=== PATIENT | male | born 1960 | race Caucasian/White ===

== ENCOUNTER 2020-05-30 13:07 | Inpatient (IN) | payer MEDICAID, SELFPAY ==
[2020-05-30 13:08] VITALS: BP 111/65; PULSE 86; RESP 15; TEMP 37.3; O2SAT 98; BMI 40.4
--- NOTE | 2020-05-30 14:18 | EKG12_ITS ---
Test Reason : MENTAL CLEARANCE Blood Pressure : / mmHG Vent. Rate : 081 BPM Atrial Rate : 081 BPM P-R Int : 132 ms QRS Dur : 098 ms QT Int : 394 ms P-R-T Axes : 021 -03 032 degrees QTc Int : 457 ms Normal sinus rhythm Normal ECG Confirmed by OLIVIA SHERMAN ([id number]), medical editor DEVON POOLE ([id number]) on 06/01/2020 8:58:41 AM Referred By: JUVENTINO Confirmed By:OLIVIA SHERMAN
--- NOTE | 2020-05-30 14:29 | NURSING ---
NO OLD EKGS
--- NOTE | 2020-05-30 14:30 | ED.DCSUM_ITS ---
History of Present Illness Chief Complaint: Suicidal Narrative: 10-year-old male presents with concern for upper respiratory infection as well as diarrhea and vomiting. States is been persistent over the past 1 week. States he has been feeling weak and having muscle aches. No documented fevers at home. States that a friend from [place] did visit approximately 14 days ago. Concerned he has coronavirus. While being screened for suicide patient did answer yes to most of the questions stating that he does regularly think about suicide. Has no plan at this time and states that he would not perform the act given there were too many people that depend on him and it would hurt too many of his family members. No previous suicide attempts in the past. No attempts today. Patient denies any drug abuse. Admits to occasional alcohol abuse. Past Medical History - Allergies and Home Meds Allergies/Adverse Reactions: Allergies No Known Allergies Allergy (Verified 05/30/20 13:08) Prior records reviewed: Yes Past Medical History: None Surgical History: - - Multiple upper endoscopy and colonoscopy Lives: Alone Smoking Status: Never smoker Alcohol: Rare Drugs: None - Family History Maternal Family History: Reports: Cancer - renal Paternal Family History: Reports: - - lung dz Review of Systems General: Reports: Fever, Malaise. Denies: Chills, Sweats Eyes: Denies: Visual changes - bilaterally, Diplopia ENT: Denies: Rhinorrhea, Sore throat Cardiovascular: Denies: Chest pain, Palpitations Respiratory: Reports: Cough. Denies: Dyspnea, Dyspnea on exertion Gastrointestinal: Reports: Nausea, Vomiting, Diarrhea. Denies: Abdominal pain, Melena, Hematochezia Genitourinary: Denies: Dysuria, Hematuria, Frequency Musculoskeletal: Denies: Back pain, Extremity Pain Skin: Denies: Rash, Wounds Neurological: Denies: Headache, Weakness, Numbness Physical Exam Vital Signs/Narrative: Vital Signs Temp Pulse Resp BP Pulse Ox 05/30/20 13:08 99.2 F H 86 15 111/65 98 Inital Vital Signs reviewed: Yes General: Well nourished, Well developed, No Acute Distress Head: Normocephalic, Atraumatic Eyes: Perrl, EOMI ENT: Moist mucous membranes, No rhinorrhea Neck: Supple, Nontender Cardiovascular: Regular rate, Regular rhythm, No murmurs Respiratory: No distress, CTA bilaterally, Chest nontender Abdomen: Soft, Nontender, Nondistended, Normal bowel sounds Back: Nontender, Normal Inspection Extremities: Nontender, No edema Skin: Normal color, No rash Neurological: Alert, Oriented x3, Cranial nerves II-XII grossly intact, Normal Strength, Normal Sensation Psychological: Normal affect, Normal Mood Diagnostic/Tx/Re-eval ED Activity Last Name: ANTHONY Status: FINAL First Name: NIRANJAN Priority: 2 Middle: K Condition: Birthdate: 1960 Arrival Date/Time: 05/30/20 13:07 Age: 60 Arrival Mode: FAMILY VEHICLE Sex: M Triaged At: 05/30/20 13:08 Language: Hungarian Time Seen by Provider: 05/30/20 14:00 Stated Complaint: SOB - Rhythm Strip Rhythm Strip: Sinus Rhythm Rate: 81 Ectopy: None - EKG Initial EKG Interpretation: Sinus Rhythm - Normal sinus rhythm at 81 bpm. WV interval 132 ms. QTC of 457 ms. No evidence of ST elevation or depression at this time. - Medical Decision Making Appears well nontoxic. Evidence of pneumonia on chest x-ray. With the patient's diarrhea as well as transaminitis and hyponatremia concern for Legionella. Urine was sent for further evaluation. Patient was given Rocephin and azithromycin. Coronavirus negative. Patient evaluated by social work who feels that he can follow-up as an outpatient for his suicidal thoughts. Patient has no plan at this time. However given he is continuing not to feel well he will be placed on 2 L nasal cannula for hypoxemia and admitted to the hospitalist service. Admitted in stable condition. ED Disposition - Plan for ED Patient: Disposition: Acute Care Hospital [facility]
[2020-05-30] MEDS: Ondansetron 4 MG/2 ML Vial IV (14:44)
[2020-05-30 14:46] VITALS: BP 116/68; PULSE 83; RESP 17; TEMP 37.8; O2SAT 98; O2SAT 99
--- NOTE | 2020-05-30 15:03 | RAD_ITS ---
STUDY: X-RAY CHEST REASON FOR EXAM: Male, 60 years old. Sob, loose stool, recent covid test but doesn''t have results back yet, weak, unable to keep food down TECHNIQUE: Single AP portable view of the chest. COMPARISON: None. FINDINGS: EKG electrodes are seen. Infiltration in the right middle lobe. There is no demonstrated pleural abnormality. There is borderline cardiomegaly. Normal mediastinum and farrah. Normal visualized pulmonary arteries. Normal visualized aortic arch and descending thoracic aorta. There are mild degenerative changes of the visualized thoracic spine. Normal visualized ribs, clavicles, and shoulders. There is no demonstrated abnormality of the visualized soft tissue structures of the upper abdomen. RAD/Chest 1 View (Portable) IMPRESSION: Right middle lobe infiltrate. Electronically Signed: Dru Landers, at 15:22 EDT , Service support ,
[2020-05-30 15:05] LABS: Absolute Lymphocyte Count 1.63 X10^3/uL (0.83-4.51); Absolute Neutrophil Count 7.8 X10^3/uL (2.0-7.7); Basophil# 0.04 X10^3/uL; Basophil% 0.4 % (0-1); Eosinophil# 0.01 X10^3/uL; Eosinophils% 0.1 % (0-5); Hematocrit 41.9 % (40-54); Hemoglobin 14.1 g/dL (13.0-16.5); Lymphocyte # 1.63 X10^3/ul (4.0); Lymphocyte % 15.2 % (19-41); Mean Corp Hgb Conc 33.7 g/dL (32-36); Mean Corpuscular Hgb 30.5 pg (27.0-32.0); Mean Corpuscular Volume 90.7 fL (80-94); Mean Platelet Vol. 10.7 fl (6.2-12.0); Monocyte# 1.07 X10^3/uL; NRBC Flagged by Analyzer 0 % (0-5); Neutrophil # 7.83 X10^3/uL (2.7-7.7); Neutrophil % 73.1 % (47-70); Platelet Count 251 K/mm3 (150-450); RBC Distribution Width SD 43.2 fl (35.1-43.9); Red Blood Count 4.62 M/mm3 (4.6-6.2); White Blood Count 10.7 K/mm3 (4.4-11.0)
[2020-05-30 15:34] LABS: AST(SGOT) 332 U/L (15-37); Alanine Aminotransfer ALT/SGPT 280 U/L (16-61); Albumin, Serum 2.5 g/dL (3.2-5.0); Alkaline Phosphatase 88 U/L (45-117); Anion Gap 8 (5-15); BUN 22 mg/dL (7-18); BUN/Creat Ratio 16.4 RATIO (10-20); Bilirubin, Direct 0.32 mg/dL (0.00-0.30); Calcium,Total 8.5 mg/dL (8.5-10.1); Chloride 92 mmol/L (98-107); Creatinine, Serum 1.34 mg/dL (0.70-1.30); EST Glomerular Filtration Rate 58 mL/min (>60); Est Glom Filt Rate - Afr Amer 70 mL/min (>60); Estimated Creatinine Clearance 61.29 ml/min; Globulin 5.2 g/dL (2.2-4.2); Glucose 94 mg/dL (74-106); Potassium 3.3 mmol/L (3.5-5.1); Protein, Total 7.7 g/dL (6.4-8.2); Sodium Level 129 mmol/L (136-145)
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
--- NOTE | 2020-05-30 15:47 | ED.RN ---
PER MINA DUENAS D/C
[2020-05-30] MEDS: Ceftriaxone 1 GM/50 ML BAG IV (15:54)
[2020-05-30 15:58] VITALS: BP 107/64; PULSE 82; PULSE 83; RESP 19; TEMP 38.3; O2SAT 97
[2020-05-30] MEDS: Acetaminophen 500 MG Tablet 1000 MG PO (16:06)
--- NOTE | 2020-05-30 17:11 | PCM.HP.STD ---
History of Present Illness The patient is a 60 year old M [] Past Medical History Allergies No Known Allergies Allergy (Verified 05/30/20 13:08) Home Medications: Ambulatory Orders Medication Instructions Recorded NK 05/30/20 Surgical History: - - Multiple upper endoscopy and colonoscopy Lives: Alone Smoking Status: Never smoker Alcohol: Rare Drugs: None - Physical Exam Vitals/I&O's: Vital Signs Temp Pulse Resp BP Pulse Ox 101.0 F H 83 19 H 107/64 97 05/30/20 15:58 05/30/20 15:58 05/30/20 15:58 05/30/20 15:58 05/30/20 15:58 Oxygen Delivery Method Room Air Weight: 282 lb 3.067 oz Body Mass Index (BMI) 40.4 Intake and Output for Last 24 Hours 05/28/20 05/29/20 05/30/20 23:59 23:59 23:59 Intake Total 50 / 50 Balance 50 / 50 Laboratory Results 05/30/20 14:35: COVID-19 (ABDON) Negative 05/30/20 14:40: WBC 10.7, RBC 4.62, Hgb 14.1, Hct 41.9, MCV 90.7, MCH 30.5, MCHC 33.7, RDW Std Deviation 43.2, RDW Coeff of Stephen 13.0, Plt Count 251, MPV 10.7, Immature Gran % (Auto) 1.200 H, Neut % (Auto) 73.1 H, Lymph % (Auto) 15.2 L, [place] % (Auto) 10.0, Eos % (Auto) 0.1, Baso % (Auto) 0.4, Absolute Neuts (auto) 7.8 H, Absolute Lymphs (auto) 1.63, Nucleated RBC % 0 05/30/20 14:40: Sodium 129 L, Potassium 3.3 L, Chloride 92 L, Carbon Dioxide 29.0, Anion Gap 8, BUN 22 H, Creatinine 1.34 H, Estim Creat Clear Calc 61.29, Est GFR (MDRD) Af Amer 70, Est GFR (MDRD) Non-Af 58 L, BUN/Creatinine Ratio 16.4, Glucose 94, Calcium 8.5, Total Bilirubin 0.80, Direct Bilirubin 0.32 H, AST 332 H, ALT 280 H, Alkaline Phosphatase 88, Troponin I 0.015, Total Protein 7.7, Albumin 2.5 L, Globulin 5.2 H 05/30/20 14:40: Ethyl Alcohol 4.0 05/30/20 14:40: Urine Amphetamine Pending
--- NOTE | 2020-05-30 17:24 | NURSING ---
MED SURG WHITE PNEUMONIA
--- NOTE | 2020-05-30 17:38 | HP.PCM_ITS ---
Problem List (1) PNA (pneumonia) Status: Acute (2) Sepsis Status: Acute (3) Abnormal LFTs Status: Acute History of Present Illness Date of Admission: 05/30/20 Chief Complaint: SOB The patient is a 60 year old M with pmhx of GI bleed 2/2 colonic polyps, not on any home meds who presented to the ER with c/o SOB and stating he thinks he has covid. He went to a bar with a friend from [place] about 10 days ago. The following friday he started feeling ill. He started with a cough with ocasional sputum production. He then started having severe fatigue, muscle and joint a ches, headaches. He developed nausea and vomiting and severe diarrhea. He states he is going about 20x per day loose stools and has BL LQ abdominal pain. He He had fevers and chills start yesterday. He also has developed a change in his taste and smell starting friday afternoon. He started becoming SOB yesterday. [] Past Medical History Allergies No Known Allergies Allergy (Verified 05/30/20 13:08) Home Medications: Ambulatory Orders Medication Instructions Recorded NK 05/30/20 Surgical History: - - Multiple upper endoscopy and colonoscopy Psychiatric History: No pertinent psych hx Lives: Roommate Smoking Status: Never smoker Tobacco Use: Non-smoker Alcohol: Occasional Drugs: None - *Family History Maternal History Items: Cancer - renal Paternal History Items: - - lung dz Review of Systems Constitutional: Reports: Chills, Fever, Weakness, Fatigue. Denies: Weight Change HEENT: Denies: Head Aches, Sinus Congestion, Sinus Drainage Cardiovascular: Denies: Chest Pain, Edema, Palpitations, Syncope Respiratory: Reports: Cough, Shortness of Breath, Shortness of breath at rest, Shortness of breath upon exertion. Denies: Sputum production Gastrointestinal: Reports: Abdominal Pain, Diarrhea, Nausea, Vomiting Genitourinary: Denies: Dysuria, Frequency, Urgency Musculoskeletal: Reports: Joint Pain, Muscle pain. Denies: Joint Tenderness Skin: Denies: Lesions, Rash, Wounds Neurological: Denies: Numbness, Tingling, Focal weakness Psychiatric: Denies: Anxiety, Depression, Homicidal Ideations, Suicidal Ideations Hematologic/ Lymphatic: Denies: Easy Bruising, Easy Bleeding VTE Information - Inpt Only VTE Present on Admission: No VTE Mechan Device Prophylaxis: None VTE Pharm Prophylaxis ordered?: Yes Patient Problems: Active and Suspected Problems PNA (pneumonia) (Acute) Sepsis (Acute) Abnormal LFTs (Acute) - Physical Exam Vitals/I&O's: Vital Signs Temp Pulse Resp BP Pulse Ox 101.0 F H 83 19 H 107/64 97 05/30/20 15:58 05/30/20 15:58 05/30/20 15:58 05/30/20 15:58 05/30/20 15:58 Oxygen Delivery Method Room Air Weight: 282 lb 3.067 oz Body Mass Index (BMI) 40.4 Intake and Output for Last 24 Hours 05/28/20 05/29/20 05/30/20 23:59 23:59 23:59 Intake Total 50 / 50 Balance 50 / 50 General: Alert, Oriented x3, Cooperative HEENT: Atraumatic, PERRLA, EOMI, Normocephalic Neck: Supple, No JVD, Negative Carotid Bruits Lungs: Clear to auscultation, Normal air movement Cardiovascular: No murmurs, Tachycardic Abdomen: Bowel Sounds Present, Soft, Non Tender Extremities: No edema, Capillary Refill Less than 3 Seconds Skin: No rashes, No breakdown Musculoskeletal: No Tenderness to Palpation of Joints or Extremities Neurological: Cranial nerves II-XII grossly intact Psych/Mental Status: Normal Affect, Appropriate, Alert and oriented to time, place, person, mood and affect Laboratory Results 05/30/20 14:35: COVID-19 (ABDON) Negative 05/30/20 14:40: WBC 10.7, RBC 4.62, Hgb 14.1, Hct 41.9, MCV 90.7, MCH 30.5, MCHC 33.7, RDW Std Deviation 43.2, RDW Coeff of Stephen 13.0, Plt Count 251, MPV 10.7, Immature Gran % (Auto) 1.200 H, Neut % (Auto) 73.1 H, Lymph % (Auto) 15.2 L, [place] % (Auto) 10.0, Eos % (Auto) 0.1, Baso % (Auto) 0.4, Absolute Neuts (auto) 7.8 H, Absolute Lymphs (auto) 1.63, Nucleated RBC % 0 05/30/20 14:40: Sodium 129 L, Potassium 3.3 L, Chloride 92 L, Carbon Dioxide 29.0, Anion Gap 8, BUN 22 H, Creatinine 1.34 H, Estim Creat Clear Calc 61.29, Est GFR (MDRD) Af Amer 70, Est GFR (MDRD) Non-Af 58 L, BUN/Creatinine Ratio 16.4, Glucose 94, Calcium 8.5, Total Bilirubin 0.80, Direct Bilirubin 0.32 H, AST 332 H, ALT 280 H, Alkaline Phosphatase 88, Troponin I 0.015, Total Protein 7.7, Albumin 2.5 L, Globulin 5.2 H 05/30/20 14:40: Ethyl Alcohol 4.0 05/30/20 14:40: Urine Amphetamine Pending Assessment/Plan All Active Problems PNA (pneumonia) (Acute) Sepsis (Acute) Abnormal LFTs (Acute) 1. Acute sepsis 2/2 RML pna - concern for covid 19 as he has classic symptomatology. Initial covid test negative. Will continue precautions regardless. No leukocytosis but left shift present. + Fever tmax 101.0, cough, SOB, CXR with RML infiltrate, rales on exam. EKG sinus tacky. Trop neg. Blood cx pending. -Tx with rocephin and azithromycin, aerosols, IS/PEP therapy, mucinex. -check sputum cx, urine antigens, respiratory panel -obtain D dimer, ferritin, LDH, CRP -associated gastroenteritis - clear liquid diet, IV hydration. 2. Hyponatremia, hypokalemia, elevated BUN/Cr - unclear renal baseline. Hydrate with IV fluids and supplement K+. Check Mag. 3. Abnormal LFTs - possibly 2/2 sepsis. Repeat in AM. Obtain Liver/GB US. 4. Hx Colonic polyps with GI bleed 5. Morbid obesity - quill reamer consult. 6. Suicidal ideations - mentioned on nursing screen, occasional with no plan of action. seen by crisis - safety plan for home. DVT ppx: lovenox This patient was seen by Felipe Gonzalez PA-C under the supervision of Dr. Ann.
[2020-05-30 17:59] VITALS: BP 103/69; PULSE 66; RESP 19; TEMP 36.6; O2SAT 98
--- NOTE | 2020-05-30 18:00 | CM.ED ---
SOCIAL WORK Call to [facility], spoke with Rashmi in Crisis. Updated on referral for Crisis to complete follow up phone call and set patient up with counseling services. Patient is self-pay status and this worker discussed applying for Medicaid. Patient reports may need to look into that. FREDDIE Cordon, [employer]
--- NOTE | 2020-05-30 18:00 | NURSING ---
NEW ROOM CVICU 201
[2020-05-30 18:20] LABS: Lactic Acid 1.9 mmol/L (0.4-1.9)
[2020-05-30 18:26] VITALS: BP 111/76; PULSE 87; RESP 16; O2SAT 96
[2020-05-30 18:27] LABS: D-Dimer Quantitative (DVT/PE) 5.36 FEU/ug/m (0.27-0.49)
--- NOTE | 2020-05-30 19:14 | US_ITS ---
HISTORY: ABN LFTS TECHNIQUE: Anaya scale and color doppler imaging was performed of the pancreas, liver, and gallbladder. COMPARISON: None FINDINGS: # of images incl. paperwork: 124 The liver is enlarged at 18.4 cm. Within the liver there are several lesions. These are hypoechoic with well-defined margins and increased through transmission consistent with benign cysts. One of these measures 3.2 x 2.4 x 3 cm. Another measures 3.6 x 4.8 x 3.8 cm. A third measures 0.9 x 0.8 x 0.8 cm. No gallstones, gallbladder wall thickening or biliary dilatation. Gallbladder wall measures 2 mm. Common bile duct measures 5 mm. No tenderness upon insonation the gallbladder. Visualized pancreas is normal in appearance. Right kidney is normal in size and appearance. Visualized abdominal aorta has normal caliber. IVC is patent. Hepatopedal flow is present within the central portal vein. US/Liver IMPRESSION: Hepatomegaly and hepatic steatosis. 3 benign hepatic cysts.. at 2057 Reported and signed by: Rich Ravi MD Electronically Signed: Rich Ravi MD at 20:56 EDT Tel , Service support ,
--- NOTE | 2020-05-30 19:21 | CT_ITS ---
HISTORY: DYSPNEA/COUGH,FATIGUE,HEADACHE,MUSCLE AND JOINT ACHES,NAUSEA,VOMITING AND DIARRHEA,PT'S COVID TEST WAS NEGATIVE TECHNIQUE: Helically acquired images were obtained of the chest following the intravenous administration of 100 ML of Isovue-370 Iodinated contrast. as per pulmonary angiogram protocol with 2D , but without 3-D MIP reconstructions. A radiation dose optimization technique was used for this scan. COMPARISON: Chest x-ray from May 30, 2020 FINDINGS: # of images incl. paperwork: 1311 Airspace disease is present throughout the right lower lobe with decreased volume. The consolidation is confluent with the right hilum. No effusions. Within the thoracic spinethere is a minimal kyphosis with some degenerative disc disease. A few small node invaginations are present. No lytic or blastic metastasis are perceived Vertebral body height fairly well preserved Facets are well aligned. No rib lesions are perceived. Heart is not enlarged. Thoracic aorta diseased with atherosclerotic calcific plaque. No aneurysms, stenoses, dissections, nor occlusions. Right hilar lymphoid tissue is prominent. There is likely some subcarinal lymphadenopathy. No axillary adenopathy is perceived No pulmonary emboli are perceived, however, the timing of the contrast bolus demonstrates improved opacification of the pulmonary veins in the thoracic aorta than it does the pulmonary arteries, therefore, decreasing the negative predictive value of this study Many hypodense lesions are present within the liver. The largest of these, within the dome of the liver has fairly well-defined margins, measures 4.5 cm in long axis dimensions, and has a central density of -5 Hounsfield units. All of these lesions are suggestive of cysts. A comparison liver ultrasound is available from one hour earlier. Several benign liver cysts were demonstrated on the ultrasound. The adrenal glands are incompletely imaged but normal. The gallbladder is contracted CT/CTA Chest W/WO Contrast IMPRESSION: No pulmonary embolism, aortic aneurysm, or aortic dissection. Timing of the contrast bolus is more optimized for the pulmonary veins in the thoracic aorta than it is the pulmonary arteries. This decreases the negative predictive value of the study, however, I believe the study is still diagnostic to exclude pulmonary embolism. Right lower lobe airspace disease continuous with the right hilum with right hilar and some mediastinal adenopathy. This could be infection, however, this could also be malignancy. Several hypodense lesions within the liver confirmed to be cysts on the ultrasound performed earlier today. Individualized dose optimization techniques were used for this CT. at 2121 Reported and signed by: Rich Ravi MD Electronically Signed: Rich Ravi MD at 21:20 EDT Tel , Service support ,
[2020-05-30 19:30] VITALS: BP 106/61; PULSE 69; RESP 20; TEMP 36.1; O2SAT 100; BMI 40.4
[2020-05-30 19:43] VITALS: BMI 40.4
[2020-05-30] MEDS: 0.9% Normal Saline 1,000 ML 125 ML IV (19:57)
[2020-05-30 20:01] LABS: International Normalized Ratio 1.2; Prothrombin Time (Protime)PT. 14.5 SECONDS (11.7-14.9)
[2020-05-30 20:02] LABS: Partial Thromboplast Time 38.1 Seconds (24.1-36.2)
[2020-05-30] MEDS: Famotidine 20 MG Tablet PO (20:02)
[2020-05-30] MEDS: Enoxaparin 150 MG/ML Syringe 130 MG SC (20:03)
[2020-05-30 20:13] LABS: Ferritin 6268 ng/mL (26-388); LDH 552 U/L (87-241); Phosphorus 2.4 mg/dL (2.5-4.9)
[2020-05-30 20:28] LABS: Procalcitonin 0.94 ng/mL (0.00-0.09)
[2020-05-31] VITALS (7 sets, daily range): BP systolic 110–127; BP diastolic 60–97; PULSE 66–78; RESP 16–18; TEMP 36.3–36.6; O2SAT 96–99
[2020-05-31 00:02] LABS: Amphetamine Urine VISTA NEGATIVE (<1000 ng/mL); Barbiturate Urine VISTA NEGATIVE (< 200 ng/mL); Benzodiazepine Urine VISTA NEGATIVE (< 200 ng/mL); Cocaine Urine VISTA NEGATIVE (< 300 ng/mL); Ecstacy Urine VISTA NEGATIVE (< 500 ng/mL); Methadone Urine VISTA NEGATIVE (< 300 ng/mL); PCP Urine VISTA NEGATIVE (< 25 ng/mL); THC Urine VISTA NEGATIVE (< 50 ng/mL); Vista UDS pH Range 6
[2020-05-31] MEDS: 0.9% Normal Saline 1,000 ML 125 ML IV (04:11)
[2020-05-31 04:26] LABS: Absolute Lymphocyte Count 1.47 X10^3/uL (0.83-4.51); Absolute Neutrophil Count 6.8 X10^3/uL (2.0-7.7); Basophil# 0.04 X10^3/uL; Basophil% 0.4 % (0-1); Eosinophil# 0.08 X10^3/uL; Eosinophils% 0.8 % (0-5); Hematocrit 37.6 % (40-54); Hemoglobin 13.2 g/dL (13.0-16.5); Lymphocyte # 1.47 X10^3/ul (4.0); Lymphocyte % 15.4 % (19-41); Mean Corp Hgb Conc 35.1 g/dL (32-36); Mean Corpuscular Hgb 31.7 pg (27.0-32.0); Mean Corpuscular Volume 90.4 fL (80-94); Mean Platelet Vol. 10.8 fl (6.2-12.0); Monocyte# 1.03 X10^3/uL; Monocyte% 10.8 % (0-10); NRBC Flagged by Analyzer 0 % (0-5); Neutrophil # 6.75 X10^3/uL (2.7-7.7); Neutrophil % 70.9 % (47-70); Platelet Count 233 K/mm3 (150-450); RBC Distribution Width SD 43.1 fl (35.1-43.9); Red Blood Count 4.16 M/mm3 (4.6-6.2); White Blood Count 9.5 K/mm3 (4.4-11.0)
[2020-05-31] MEDS: Enoxaparin 150 MG/ML Syringe 130 MG SC ×2 (04:52→16:48)
[2020-05-31 05:02] LABS: ALB/GLOB Ratio 0.5 RATIO (0.9-2.4); AST(SGOT) 262 U/L (15-37); Alanine Aminotransfer ALT/SGPT 282 U/L (16-61); Albumin, Serum 2.3 g/dL (3.2-5.0); Alkaline Phosphatase 85 U/L (45-117); Anion Gap 9 (5-15); BUN 20 mg/dL (7-18); BUN/Creat Ratio 16.4 RATIO (10-20); Chloride 96 mmol/L (98-107); Creatinine, Serum 1.22 mg/dL (0.70-1.30); EST Glomerular Filtration Rate 65 mL/min (>60); Est Glom Filt Rate - Afr Amer 78 mL/min (>60); Estimated Creatinine Clearance 67.32 ml/min; Globulin 4.6 g/dL (2.2-4.2); Glucose 99 mg/dL (74-106); Potassium 3.1 mmol/L (3.5-5.1); Protein, Total 6.9 g/dL (6.4-8.2); Sodium Level 133 mmol/L (136-145)
--- NOTE | 2020-05-31 05:55 | VDLE_ITS ---
Reason For Study: Elevated D-dimer RIGHT LEFT GSV is normal. GSV is normal. CFV, SFJ, FV, PopV are compressible. CFV, SFJ, FV, PopV are compressible. T/P Trunk is compressible. T/P Trunk is compressible. PTV is compressible. PTV is compressible. RT PerV is compressible. LT PerV is compressible. Procedure Exam performed portable in ICU/CCU. The exam was abbreviated due to the COVID 19 protocol. A preliminary report was called and/or faxed to ICU. Interpretation Summary No evidence for acute deep venous thrombosis bilateral lower extremities with patent and compressible bilateral great saphenous veins. Abbreviated Covid-19 protocol Ordering Physician: Scott Yeh Performed By: Alba Polk RVT
--- NOTE | 2020-05-31 07:35 | PN_ITS ---
Patient Problems: Active and Suspected Problems PNA (pneumonia) (Acute) Sepsis (Acute) Abnormal LFTs (Acute) Subjective: Pt states that he is feeling better than when he came in yesterday. Still with SOB though. C/O sig fatigue too. Denies pain. State that he has had those liver cysts for at least 20 yrs. Vitals/I&O's: Vital Signs Temp Pulse Resp BP Pulse Ox 97.6 F L 68 18 125/66 H 96 05/31/20 04:08 05/31/20 04:08 05/31/20 04:08 05/31/20 04:08 05/31/20 06:50 Oxygen Flow Rate (L/min) 2 Oxygen Delivery Method Nasal Cannula Weight: 127.868 kg Body Mass Index (BMI) 40.4 Intake and Output for Last 24 Hours 05/29/20 05/30/20 05/31/20 23:59 23:59 23:59 Intake Total 305 / 425 1360.00 / 1360.00 Balance 305 / 425 1360.00 / 1360.00 General: Alert, Oriented x3, No apparent distress, Well developed, Well nourished HEENT: Atraumatic, PERRLA, EOMI, TM's Clear Oral: Moist Mucosa, No Gingival or Mucosal Lesions/ Ulcerations, - - Mallampati 3 Neck: Supple, No JVD, Negative Carotid Bruits, Negative Hepatojugular Reflux, No Nodes, No Nuchal Rigidity, Trachea Midline, Thyroid Normal Size and Texture Lungs: No rhonchi, No wheeze, Rales - RML crackles Cardiovascular: Regular rate, Regular Rhythm, Normal S1, Normal S2, No murmurs, No Ectopic Activity, No rub noted, No Gallop Abdomen: Bowel Sounds Present, Soft, Non Tender, Non-Distended, No Hepato- splenomegaly, Obese, No hernias noted Extremities: No clubbing, No cyanosis, No edema, Capillary Refill Less than 3 Seconds Skin: No rashes, No breakdown Musculoskeletal: No Tenderness to Palpation of Joints or Extremities, No Muscle Wasting Neurological: Cranial nerves II-XII grossly intact, Deep Tendon Reflexes 2+/4 and Symmetrical, Neuro grossly intact, Motor Exam 5/5 strength throughout, Muscle tone normal, Coordination normal Psych/Mental Status: Normal Affect, Appropriate, Alert and oriented to time, place, person, mood and affect Microbiology Past 72 Hours 05/30/20 23:00 Urine, Clean Catch Legionella Antigen - Final 05/30/20 23:00 Urine, Random Streptococcus pneumoniae Antigen (M - Final Laboratory Results 05/30/20 14:35: COVID-19 (ABDON) Negative 05/30/20 14:40: WBC 10.7, RBC 4.62, Hgb 14.1, Hct 41.9, MCV 90.7, MCH 30.5, MCHC 33.7, RDW Std Deviation 43.2, RDW Coeff of Stephen 13.0, Plt Count 251, MPV 10.7, Immature Gran % (Auto) 1.200 H, Neut % (Auto) 73.1 H, Lymph % (Auto) 15.2 L, [place] % (Auto) 10.0, Eos % (Auto) 0.1, Baso % (Auto) 0.4, Absolute Neuts (auto) 7.8 H, Absolute Lymphs (auto) 1.63, Nucleated RBC % 0 05/30/20 14:40: Sodium 129 L, Potassium 3.3 L, Chloride 92 L, Carbon Dioxide 29.0, Anion Gap 8, BUN 22 H, Creatinine 1.34 H, Estim Creat Clear Calc 61.29, Est GFR (MDRD) Af Amer 70, Est GFR (MDRD) Non-Af 58 L, BUN/Creatinine Ratio 16.4, Glucose 94, Calcium 8.5, Total Bilirubin 0.80, Direct Bilirubin 0.32 H, AST 332 H, ALT 280 H, Alkaline Phosphatase 88, Troponin I 0.015, Total Protein 7.7, Albumin 2.5 L, Globulin 5.2 H 05/30/20 14:40: Ethyl Alcohol 4.0 05/30/20 14:40: Ur Butalbital Screen Cancelled, Ur Butalbital Confirm Cancelled, Ur Opiates, Quant Cancelled, Ur Opiates Confirm Cancelled, Urine Codeine Confirm Cancelled, Urine Morphine Cancelled, Ur Morphine Confirm Cancelled, Urine Barbiturates Cancelled, Ur Barbiturate Confirm Cancelled, Ur Phencyclidine (PCP) Cancelled, Urine PCP Confirm Cancelled, Ur PCP Confirm (GC/MS) Cancelled, U Phencyclidine Interp Cancelled, Urine Amphetamine Cancelled, U Amphetamines Confirm Cancelled, Urine Methamphetamines Cancelled, U Methamphetamin GC/MS Cancelled, Ur Amobarbital Screen Cancelled, Ur Amobarbital GC/MS Cancelled, U Pentobarbital Scrn Cancelled, U Pentobarbital GC/MS Cancelled, U Phenobarbital Scrn Cancelled, U Phenobarbital GC/MS Cancelled, U Secobarbital Screen Cancelled, U Secobarbital GC/MS Cancelled, U OH-Alprazolam Screen Cancelled, U OH-Alprazolam Confrm Cancelled, U Benzodiazepines Scrn Cancelled, U Benzod iazepine Confm Cancelled, U Benzodiazepine Cmmnt Cancelled, Ur Nordiazepam Cancelled, Ur Nordiazepam GC/MS Cancelled, Ur Oxazepam Screen Cancelled, U Oxazepam Confm GC/MS Cancelled, Urine Cocaine Cancelled, Urine Cocaine Confirm Cancelled, U Cocaine Metab Screen Cancelled, U Benzoylecgonine GC/MS Cancelled, Urine Cannabinoids Cancelled, U Cannabinoids Confirm Cancelled, Ur Carboxy THC Confirm Cancelled, Ur Carboxy THC GC/MS Cancelled, Ethyl Alc Confirm Cancelled, Urine Ethyl Alcohol Cancelled 05/30/20 14:40: D-Dimer Quant (PE/DVT) 5.36 H* 05/30/20 14:40: PT 14.5, INR 1.2, APTT 38.1 H 05/30/20 14:40: Phosphorus 2.4 L, Magnesium 3.0 H, Ferritin 6268 H, Lactate Dehydrogenase 552 H, C-React Prot Ext Range 344.00 H 05/30/20 17:40: Lactic Acid 1.9 05/30/20 20:00: Procalcitonin 0.94 H 05/30/20 23:30: Urine Opiates Screen NEGATIVE, Urine Methadone Screen NEGATIVE, Ur Barbiturates Screen NEGATIVE, Ur Phencyclidine Scrn NEGATIVE, Ur Amphetamines Screen NEGATIVE, U Methamphetamin-MDMA NEGATIVE, U Benzodiazepines Scrn NEG ATIVE, Urine Cocaine Screen NEGATIVE, U Cannabinoids Screen NEGATIVE, Ur Drug Screen Comment 05/31/20 04:15: WBC 9.5, RBC 4.16 L, Hgb 13.2, Hct 37.6 L, MCV 90.4, MCH 31.7, MCHC 35.1, RDW Std Deviation 43.1, RDW Coeff of Stephen 13.0, Plt Count 233, MPV 10.8, Immature Gran % (Auto) 1.700 H, Neut % (Auto) 70.9 H, Lymph % (Auto) 15.4 L, [place] % (Auto) 10.8 H, Eos % (Auto) 0.8, Baso % (Auto) 0.4, Absolute Neuts (auto) 6.8, Absolute Lymphs (auto) 1.47, Nucleated RBC % 0 05/31/20 04:15: Sodium 133 L, Potassium 3.1 L, Chloride 96 L, Carbon Dioxide 28.0, Anion Gap 9, BUN 20 H, Creatinine 1.22, Estim Creat Clear Calc 67.32, Est GFR (MDRD) Af Amer 78, Est GFR (MDRD) Non-Af 65, BUN/Creatinine Ratio 16.4, Glucose 99, Calcium 8.0 L, Total Bilirubin 0.70, AST 262 H, ALT 282 H, Alkaline Phosphatase 85, Total Protein 6.9, Albumin 2.3 L, Globulin 4.6 H, Albumin/Globulin Ratio 0.5 L Current Medications Acetaminophen (Tylenol) 650 mg PO Q6H PRN PRN PRN Reason: Pain Score 1-10/Temp > 100.7 F Al Hydroxide/Mg Hydroxide (Mylanta Ii) 30 ml PO Q6H PRN PRN PRN Reason: Gastric Burning Albuterol Sulfate (Ventolin Aerosols) 2.5 mg INHALATION Q2H PRN PRN PRN Reason: Dyspnea, wheezing Enoxaparin Sodium (Lovenox) 130 mg SC Q12@0600,1800 [facility] Last Admin: 05/31/20 04:52 Dose: 130 mg Documented by: Famotidine (Pepcid) 20 mg PO BID [facility] Last Admin: 05/30/20 20:02 Dose: 20 mg Documented by: Guaifenesin (Robitussin) 20 ml PO Q4H PRN PRN PRN Reason: COUGH Hydralazine HCl (Apresoline Iv) 10 mg IV Q4H PRN PRN PRN Reason: SBP > 160 Sodium Chloride () 1,000 mls @ 125 mls/hr IV .Q8H [facility] Last Admin: 05/31/20 04:11 Dose: 125 mls/hr Documented by: Levofloxacin (Levaquin Iv) 750 mg in 150 mls @ 100 mls/hr IV Q24 [facility] Ondansetron HCl (Zofran) 4 mg IV Q6H PRN PRN PRN Reason: NAUSEA/VOMITING Prochlorperazine Edisylate (Compazine Iv) 5 mg IV Q4H PRN PRN PRN Reason: Breakthrough nausea/vomiting Sodium Chloride () 10 - 40 ml IV UD PRN PRN Reason: SALINE FLUSH Temazepam (Restoril) 15 mg PO QHS PRN PRN PRN Reason: INSOMNIA Throat Lozenges (Cepacol Sore Throat Lozenge) 1 lozenge MUCOUS MEM Q2H PRN PRN PRN Reason: SORE THROAT STROKE Vital Signs/Narrative: Vital Signs Temp Pulse Resp BP Pulse Ox 05/31/20 06:50 96 05/31/20 04:08 97.6 F L 68 18 125/66 H 96 Medical Necessity - Tobacco Use Smoking Status: Never smoker Tobacco Use: Non-smoker Assessment/Plan All Active Problems PNA (pneumonia) (Acute) Sepsis (Acute) Abnormal LFTs (Acute) Acute Sepsis 2/2 RML PNA with concern for Acute Viral Syndrome (COVID-19) -Initial COVID was neg -repeat COVID in am as history is convincing for this diagnosis -CTA neg for PE but RML infiltrate noted -will place on 40 mg Lovenox BID for now -continue Levaquin at this time -PCT elevated at 0.94--> repeat in am on 06/02 -urine antigens are neg -await cx (blood and sputum -pt on 2 L n/c--> cont and wean as tolerated -pulm toilet Hypovolemic Hyponatremia -improving with hydration -PNA may play into this as well -repeat in am ANIL 2/2 dehydration -baseline is unknown but sCr is trending down with hydration -continue hydration but reduce to 75 cc/hr from 125 of NS Transaminitis -AST trending down and ALT stable -repeat in am Liver Cysts -stable on US and CT -f/u as outpt Hypokalemia -dose KDur 40 mEq x 2 doses today -repeat am K -mag was WNL MO BMI 40.4 -recommend wgt loss -dietitian consulted H/O Colon Polyps with LGIB -hgb stable -monitor -f/u as outpt as directed previously SI? -there was concern over this upon admission -pt was seen by crisis and was cleared for home upon d/c -will need outpt psych f/u DVT Prophylaxis -Lovenox BID 40 mg Code Status -Full Inpatient E&M: 61779 Subs Hosp L3
[2020-05-31] MEDS: Famotidine 20 MG Tablet PO ×2 (08:20→22:12)
[2020-05-31] MEDS: levoFLOXacin IV 750 MG/150 ML BAG 100 MG IV (10:23)
--- NOTE | 2020-05-31 11:04 | CASEMGMT ---
Addendum entered by Marilynn Gu 05/31/20 12:22: Advance Directive information also included in pt packet of resources for pt. PATRICIA Carrillo Original Note: Social Work Phone call placed to pt room to discuss self pay status. Pt stating that he is feeling much better emotionally. Discussed self pt with pt and pt states he has been working at a [employer] agency and was going to sign up for insurance but had not got this done yet. SW discussed Medicaid with pt and pt stating he is not certain if he would qualify, but he would accept application. SW explained that if he completed while here SW could fax to [facility] otherwise pt would need to take application to [facility]. Pt stating he does not have a PCP. JACE explained the [facility]. Pt does not currently take any medications and is uncertain if he will be able to afford medication at discharge as it will depend how much medications will cost. JACE provided Medicaid Hermilo, [employer] info, PCP list and prescription assistance information to nurse to give to pt. Pt denies any further needs. PATRICIA Babcock
--- NOTE | 2020-05-31 12:12 | CASEMGMT ---
JOY FAY assessment: JACE has spoken w/pt re: self pay, no PCP, and Rx assistance. See Marilynn MCCORMICK note. Pt remains in isolation precautions. JOY FAY placed call to pt's room at this time introduced self and role at [facility]. Pt is A/O at this time and answers all questions appropriately. Care providers, pharmacy, and demographics verified/updated at this time. Preferred pharmacy: [facility]. Living Will/HPOA: States does not have LW or HCPOA . He states he has 2 adult children but they both live in [place] [facility] and he states he would most likely have his sister, Gaviota, be his POA. He is interested in more information. JACE, Marilynn, made aware and states she will give pt Social Service rac card with number to call if chooses in the future to utilize [facility] social work for advanced directive completion or pt may be able to complete while @ [facility] once he is out of isolation precautions. Living arrangements: Lives alone. Independent. Transportation: Pt drives. States he does not know if he will have a ride home @ discharge. Pt made aware, if he is unable to find a ride home, he may be able to use [facility] van transportation, if they are available, or [facility] can provide a taxi voucher. Pt voices appreciation. DME: Denies using any DME and denies needs. Discharge plan: home [place] STEINER RN, CM
[2020-05-31] MEDS: 0.9% Normal Saline 1,000 ML 75 ML IV (14:43)
--- NOTE | 2020-05-31 16:17 | NURSING ---
crisis called pt to do a follow up call, pt told crisis that he did not have anywhere to go after discharge. pt also stated that if and when he commits suicide that no one would know. crisis call nursing to ask if pt needed to have a eval once medically stable. dr garay notified of what pt stated and dr garay ordered crisis to see pt once medically stable. order for social serv. placed in computer for crisis to see pt.
[2020-06-01 03:39] VITALS: BP 119/73; PULSE 78; RESP 17; TEMP 36.3; O2SAT 98
[2020-06-01] MEDS: 0.9% Normal Saline 1,000 ML 75 ML IV (03:43)
[2020-06-01 04:01] LABS: Absolute Neutrophil Count 4.4 X10^3/uL (2.0-7.7); Basophil# 0.07 X10^3/uL; Basophil% 0.9 % (0-1); Eosinophil# 0.21 X10^3/uL; Eosinophils% 2.8 % (0-5); Hematocrit 32.6 % (40-54); Hemoglobin 10.7 g/dL (13.0-16.5); Lymphocyte % 22.9 % (19-41); Mean Corp Hgb Conc 32.8 g/dL (32-36); Mean Corpuscular Hgb 30.5 pg (27.0-32.0); Mean Corpuscular Volume 92.9 fL (80-94); Mean Platelet Vol. 10.8 fl (6.2-12.0); Monocyte% 10.8 % (0-10); NRBC Flagged by Analyzer 0 % (0-5); Neutrophil # 4.37 X10^3/uL (2.7-7.7); Neutrophil % 58.8 % (47-70); Platelet Count 271 K/mm3 (150-450); RBC Distribution Width CV 13.3 % (11.6-14.6); RBC Distribution Width SD 45.3 fl (35.1-43.9); Red Blood Count 3.51 M/mm3 (4.6-6.2); White Blood Count 7.4 K/mm3 (4.4-11.0)
[2020-06-01 04:22] LABS: AST(SGOT) 139 U/L (15-37); Alanine Aminotransfer ALT/SGPT 224 U/L (16-61); Alkaline Phosphatase 86 U/L (45-117); Anion Gap 5 (5-15); BUN 17 mg/dL (7-18); BUN/Creat Ratio 17.6 RATIO (10-20); Bilirubin, Direct 0.13 mg/dL (0.00-0.30); Chloride 103 mmol/L (98-107); Creatinine, Serum 0.97 mg/dL (0.70-1.30); EST Glomerular Filtration Rate 84 mL/min (>60); Est Glom Filt Rate - Afr Amer 102 mL/min (>60); Estimated Creatinine Clearance 84.66 ml/min; Globulin 4.2 g/dL (2.2-4.2); Glucose 99 mg/dL (74-106); Potassium 3.7 mmol/L (3.5-5.1); Protein, Total 6.2 g/dL (6.4-8.2); Sodium Level 137 mmol/L (136-145)
[2020-06-01] MEDS: Enoxaparin 150 MG/ML Syringe 130 MG SC (05:38)
[2020-06-01 08:15] VITALS: BP 113/91; PULSE 64; RESP 16; TEMP 36.6; O2SAT 97
[2020-06-01 08:29] LABS: Probe Check PASS; Specimen Processing Control PASS
[2020-06-01] MEDS: Famotidine 20 MG Tablet PO ×2 (09:26→21:56)
[2020-06-01] MEDS: levoFLOXacin IV 750 MG/150 ML BAG 150 MG IV (09:26)
--- NOTE | 2020-06-01 11:31 | CASEMGMT ---
Social Work Note JACE spoke with physician, pt is medically cleared to be evaluated by crisis. JACE placed a call to Sarah Beth with crisis and updated her. JACE faxed clinicals to Sarah Beth at [facility]. Alba Keating [employer], [employer]
[2020-06-01 14:14] VITALS: BP 113/80; PULSE 79; RESP 18; TEMP 37.2; O2SAT 99
--- NOTE | 2020-06-01 14:34 | PCA ---
faxed over papers to [facility] to marianna at [phone]
--- NOTE | 2020-06-01 16:10 | PCM.PN.HOSP ---
Patient Problems: Active and Suspected Problems PNA (pneumonia) (Acute) Sepsis (Acute) Abnormal LFTs (Acute) Subjective: Feeling better. Denies SOB. On RA and SpO2 is good. Crisis has evaluated pt and request an evaluation at a psychiatric hospital. Vitals/I&O's: Vital Signs Temp Pulse Resp BP Pulse Ox 98.9 F 79 18 113/80 99 06/01/20 14:14 06/01/20 14:14 06/01/20 14:14 06/01/20 14:14 06/01/20 14:14 Oxygen Flow Rate (L/min) 2 Oxygen Delivery Method Room Air Weight: 127.868 kg Body Mass Index (BMI) 40.4 Intake and Output for Last 24 Hours 05/30/20 05/31/20 06/01/20 23:59 23:59 23:59 Intake Total 305 / 425 3362.50 / 3362.50 2114 Balance 305 / 425 3362.50 / 3362.50 2114 General: Alert, Oriented x3, Cooperative, No apparent distress, Well developed, Well nourished, - - sitter at bedside, WM sitting up in a chair watching TV Oral: Moist Mucosa, No Gingival or Mucosal Lesions/ Ulcerations Lungs: Clear to auscultation, Normal air movement, No rhonchi, No wheeze, No rales Cardiovascular: Regular rate, Regular Rhythm, Normal S1, Normal S2, No murmurs, No Ectopic Activity, No rub noted, No Gallop Abdomen: Bowel Sounds Present, Soft, Non Tender, Non-Distended, Obese Extremities: No clubbing, No cyanosis, No edema, Capillary Refill Less than 3 Seconds, Peripheral Pulses Normal Skin: No rashes, No breakdown Neurological: Cranial nerves II-XII grossly intact, Neuro grossly intact Psych/Mental Status: Normal Affect, Appropriate, - - pretends like he hasnt heard the information we discussed previously Microbiology Past 72 Hours 05/31/20 00:40 Sputum, Expectorated/Coughed Gram Stain - Final 05/31/20 00:40 Sputum, Expectorated/Coughed Respiratory Culture - Preliminary Appears to be normal respiratory aishwarya. Further studies to follow. 05/30/20 23:00 Urine, Clean Catch Legionella Antigen - Final 05/30/20 23:00 Urine, Random Streptococcus pneumoniae Antigen (M - Final Laboratory Results 06/01/20 03:45: Sodium 137, Potassium 3.7, Chloride 103, Carbon Dioxide 29.0, Anion Gap 5, BUN 17, Creatinine 0.97, Estim Creat Clear Calc 84.66, Est GFR (MDRD) Af Amer 102, Est GFR (MDRD) Non-Af 84, BUN/Creatinine Ratio 17.6, Glucose 99, Calcium 8.0 L, Total Bilirubin 0.50, Direct Bilirubin 0.13, AST 139 H, ALT 224 H, Alkaline Phosphatase 86, Total Protein 6.2 L, Albumin 2.0 L, Globulin 4.2 06/01/20 03:45: WBC 7.4, RBC 3.51 L, Hgb 10.7 L, Hct 32.6 L, MCV 92.9, MCH 30.5, MCHC 32.8 D, RDW Std Deviation 45.3 H, RDW Coeff of Stephen 13.3, Plt Count 271, MPV 10.8, Immature Gran % (Auto) 3.800 H, Neut % (Auto) 58.8, Lymph % (Auto) 22.9, [place] % (Auto) 10.8 H, Eos % (Auto) 2.8, Baso % (Auto) 0.9, Absolute Neuts (auto) 4.4, Absolute Lymphs (auto) 1.70, Nucleated RBC % 0 06/01/20 05:06: COVID-19 (ABDON) Negative Current Medications Acetaminophen (Tylenol) 650 mg PO Q6H PRN PRN PRN Reason: Pain Score 1-10/Temp > 100.7 F Al Hydroxide/Mg Hydroxide (Mylanta Ii) 30 ml PO Q6H PRN PRN PRN Reason: Gastric Burning Albuterol Sulfate (Ventolin Aerosols) 2.5 mg INHALATION Q2H PRN PRN PRN Reason: Dyspnea, wheezing Enoxaparin Sodium (Lovenox) 130 mg SC Q12@0600,1800 [facility] Last Admin: 06/01/20 05:38 Dose: 130 mg Documented by: Famotidine (Pepcid) 20 mg PO BID [facility] Last Admin: 06/01/20 09:26 Dose: 20 mg Documented by: Guaifenesin (Robitussin) 20 ml PO Q4H PRN PRN PRN Reason: COUGH Hydralazine HCl (Apresoline Iv) 10 mg IV Q4H PRN PRN PRN Reason: SBP > 160 Levofloxacin (Levaquin Iv) 750 mg in 150 mls @ 100 mls/hr IV Q24 [facility] Last Infusion: 06/01/20 11:36 Dose: Infused Documented by: Nutritional Formula (Lactose Free) (Ensure Enlive) 120 ml PO 4X/DAY [facility] Last Admin: 06/01/20 14:51 Dose: 120 ml Documented by: Ondansetron HCl (Zofran) 4 mg IV Q6H PRN PRN PRN Reason: NAUSEA/VOMITING Prochlorperazine Edisylate (Compazine Iv) 5 mg IV Q4H PRN PRN PRN Reason: Breakthrough nausea/vomiting Sodium Chloride () 10 - 40 ml IV UD PRN PRN Reason: SALINE FLUSH Temazepam (Restoril) 15 mg PO QHS PRN PRN PRN Reason: INSOMNIA Throat Lozenges (Cepacol Sore Throat Lozenge) 1 lozenge MUCOUS MEM Q2H PRN PRN PRN Reason: SORE THROAT STROKE Vital Signs/Narrative: Vital Signs Temp Pulse Resp BP Pulse Ox 06/01/20 14:14 98.9 F 79 18 113/80 99 Medical Necessity - Tobacco Use Smoking Status: Never smoker Tobacco Use: Non-smoker Assessment/Plan All Active Problems PNA (pneumonia) (Acute) Sepsis (Acute) Abnormal LFTs (Acute) Acute Sepsis 2/2 RML PNA -COVID neg x2 -CTA neg for PE but RML infiltrate noted -sputum cx now with only nml resp aishwarya but with GNR on GS and further studies to follow -continue Levaquin and switch to PO day 2/7 -urine antigens are neg -blood cx pending -pt on RA with SpO2 99% -pulm toilet Hypovolemic Hyponatremia -resolved ANIL 2/2 dehydration -resolved Liver Cysts -stable on US and CT -f/u as outpt Hypokalemia -resolved MO -BMI 40.4 -recommend wgt loss -dietitian consulted H/O Colon Polyps with LGIB -hgb stable -monitor -f/u as outpt as directed previously SI -pt was reevaluated x2 by crisis and was saying concerning things about killing himself and having guns in the house -plan is for acute psych admission once location of admission is able to be finalized -pink slip was filled out -suicide precautions -sitter DVT Prophylaxis -Lovenox daily Code Status -Full Dispo -d/c to psych once location established Inpatient E&M: 64008 Init Hosp L2
[2020-06-01 21:52] VITALS: BP 146/89; PULSE 69; RESP 18; TEMP 36.6; O2SAT 99
[2020-06-02 03:15] VITALS: BP 109/70; PULSE 76; RESP 18; TEMP 36.9; O2SAT 99
[2020-06-02] MEDS: levoFLOXacin 750 MG Tablet PO (05:36)
[2020-06-02 06:04] LABS: Hematocrit 37.7 % (40-54); Hemoglobin 12.5 g/dL (13.0-16.5)
[2020-06-02 07:43] VITALS: O2SAT 95
[2020-06-02] MEDS: Famotidine 20 MG Tablet PO ×2 (09:00→21:08)
[2020-06-02 09:02] VITALS: BP 124/82; PULSE 72; RESP 18; TEMP 36.4; O2SAT 97
--- NOTE | 2020-06-02 11:05 | CASEMGMT ---
Social Work SW spoke with Duyen at Crisis. [place] [facility] is unable to accept pt. Yessi is reviewing medical information. Duyen will notify when final d/c plan is in place. PATRICIA Babcock
--- NOTE | 2020-06-02 13:51 | PCM.PN.HOSP ---
Patient Problems: Active and Suspected Problems PNA (pneumonia) (Acute) Sepsis (Acute) Abnormal LFTs (Acute) Subjective: Pt state that he feels ok. Breathing is much better but not quite baseline. Frustrated as he would like to get the ball rolling and get back home. Vitals/I&O's: Vital Signs Temp Pulse Resp BP Pulse Ox 97.5 F L 72 18 124/82 H 97 06/02/20 09:02 06/02/20 09:02 06/02/20 09:02 06/02/20 09:02 06/02/20 09:02 Oxygen Flow Rate (L/min) 2 Oxygen Delivery Method Room Air Weight: 127.868 kg Body Mass Index (BMI) 40.4 Intake and Output for Last 24 Hours 05/31/20 06/01/20 06/02/20 23:59 23:59 23:59 Intake Total 3362.50 / 3362.50 3286.25 / 3286.25 860 / 860 Balance 3362.50 / 3362.50 3286.25 / 3286.25 860 / 860 General: Alert, Oriented x3, Cooperative, No apparent distress, Well developed, Well nourished Lungs: No rhonchi, No wheeze, Rales - RML-slight, - - comfortable breathing Cardiovascular: Regular rate, Regular Rhythm, Normal S1, Normal S2, No murmurs, No Ectopic Activity, No rub noted, No Gallop Abdomen: Bowel Sounds Present, Soft, Non Tender, Non-Distended, Obese Extremities: No clubbing, No cyanosis, Capillary Refill Less than 3 Seconds, Peripheral Pulses Normal Neurological: Cranial nerves II-XII grossly intact, Neuro grossly intact Psych/Mental Status: - - affect is odd, A&O x4 Microbiology Past 72 Hours 05/30/20 17:54 Blood Culture (Wb) - Left Hand Blood Culture - Preliminary No growth in 48 hours. 05/30/20 17:40 Blood Culture (Wb) - Right Hand Blood Culture - Preliminary No growth in 48 hours. 05/31/20 00:40 Sputum, Expectorated/Coughed Gram Stain - Final 05/31/20 00:40 Sputum, Expectorated/Coughed Respiratory Culture - Final Mixed normal respiratory aishwarya. No Streptococcus pneumoniae, beta-hemolytic Streptococcus or Staphylococcus aureus isolated. 05/30/20 23:00 Urine, Clean Catch Legionella Antigen - Final 05/30/20 23:00 Urine, Random Streptococcus pneumoniae Antigen (M - Final Laboratory Results 06/02/20 05:33: Hgb 12.5 L, Hct 37.7 L Current Medications Acetaminophen (Tylenol) 650 mg PO Q6H PRN PRN PRN Reason: Pain Score 1-10/Temp > 100.7 F Al Hydroxide/Mg Hydroxide (Mylanta Ii) 30 ml PO Q6H PRN PRN PRN Reason: Gastric Burning Albuterol Sulfate (Ventolin Aerosols) 2.5 mg INHALATION Q2H PRN PRN PRN Reason: Dyspnea, wheezing Enoxaparin Sodium (Lovenox) 40 mg SC DAILY [facility] Last Admin: 06/02/20 08:59 Dose: Not Given Documented by: Famotidine (Pepcid) 20 mg PO BID [facility] Last Admin: 06/02/20 09:00 Dose: 20 mg Documented by: Guaifenesin (Robitussin) 20 ml PO Q4H PRN PRN PRN Reason: COUGH Hydralazine HCl (Apresoline Iv) 10 mg IV Q4H PRN PRN PRN Reason: SBP > 160 Levofloxacin (Levaquin Tablet) 750 mg PO DAILY@0600 [facility] Stop: 06/07/20 06:01 Last Admin: 06/02/20 05:36 Dose: 750 mg Documented by: Nutritional Formula (Lactose Free) (Ensure Enlive) 120 ml PO 4X/DAY [facility] Last Admin: 06/02/20 09:01 Dose: Not Given Documented by: Ondansetron HCl (Zofran) 4 mg IV Q6H PRN PRN PRN Reason: NAUSEA/VOMITING Prochlorperazine Edisylate (Compazine Iv) 5 mg IV Q4H PRN PRN PRN Reason: Breakthrough nausea/vomiting Sodium Chloride () 10 - 40 ml IV UD PRN PRN Reason: SALINE FLUSH Temazepam (Restoril) 15 mg PO QHS PRN PRN PRN Reason: INSOMNIA Throat Lozenges (Cepacol Sore Throat Lozenge) 1 lozenge MUCOUS MEM Q2H PRN PRN PRN Reason: SORE THROAT Medical Necessity - Tobacco Use Smoking Status: Never smoker Tobacco Use: Non-smoker Assessment/Plan All Active Problems PNA (pneumonia) (Acute) Sepsis (Acute) Abnormal LFTs (Acute) Acute Sepsis 2/2 RML PNA -COVID neg x2 -CTA neg for PE but RML infiltrate noted -sputum cx now with only nml resp aishwarya but with GNR on GS and further studies to follow -continue Levaquin and switch to PO day 3/7 -urine antigens are neg -blood cx NGTD -pt on RA with SpO2 99% -pulm toilet Hypovolemic Hyponatremia -resolved ANIL 2/2 dehydration -resolved Liver Cysts -stable on US and CT -f/u as outpt MO -BMI 40.4 -recommend wgt loss -dietitian consulted H/O Colon Polyps with LGIB -hgb stable -monitor -f/u as outpt as directed previously SI -pt was reevaluated x2 by crisis and was saying concerning things about killing himself and having guns in the house -plan is for acute psych admission once location of admission is able to be finalized -denied by [facility] and now waiting on [facility] -pink slip was filled out -suicide precautions -sitter DVT Prophylaxis -Lovenox daily Code Status -Full Dispo -d/c to psych once location established -denied by [facility] and now waiting on [facility] Inpatient E&M: 79907 Subs Hosp L2
[2020-06-02 15:27] VITALS: BP 143/81; PULSE 66; RESP 18; TEMP 36.6; O2SAT 100
[2020-06-02 20:46] VITALS: BP 119/76; PULSE 68; RESP 18; TEMP 36.3; O2SAT 97
[2020-06-03 03:07] VITALS: BP 105/87; PULSE 87; RESP 18; TEMP 36.4; O2SAT 94
[2020-06-03] MEDS: levoFLOXacin 750 MG Tablet PO (05:39)
[2020-06-03 07:04] VITALS: O2SAT 94
[2020-06-03] MEDS: Famotidine 20 MG Tablet PO (08:04)
--- NOTE | 2020-06-03 08:32 | NURSING ---
Dr. Domingo just recently in. Saw pt. Told pt [facility] would not have a bed for him until Friday. Pt up to bathroom, passed flatus, had a BM and now sitting in chair eating breakfast. This nurse sitting with pt.
--- NOTE | 2020-06-03 08:34 | PN_ITS ---
Patient Problems: Active and Suspected Problems PNA (pneumonia) (Acute) Sepsis (Acute) Abnormal LFTs (Acute) Subjective: Pt states that his breathing is much better today and normal at rest. No issues. Happy to have a new bed as the other was uncomfortable. frustrated about having to wait until Friday for discharge but is accepting. 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 05/30/20 17:40 Blood Culture (Wb) - Right Hand Blood Culture - Preliminary No growth in 48 hours. 05/31/20 00:40 Sputum, Expectorated/Coughed Gram Stain - Final 05/31/20 00:40 Sputum, Expectorated/Coughed Respiratory Culture - Final Mixed normal respiratory aishwarya. No Streptococcus pneumoniae, beta-hemolytic Streptococcus or Staphylococcus aureus isolated. Current Medications Acetaminophen (Tylenol) 650 mg PO Q6H PRN PRN PRN Reason: Pain Score 1-10/Temp > 100.7 F Al Hydroxide/Mg Hydroxide (Mylanta Ii) 30 ml PO Q6H PRN PRN PRN Reason: Gastric Burning Albuterol Sulfate (Ventolin Aerosols) 2.5 mg INHALATION Q2H PRN PRN PRN Reason: Dyspnea, wheezing Enoxaparin Sodium (Lovenox) 40 mg SC DAILY REPLACED BY [facility] Last Admin: 06/03/20 08:05 Dose: Not Given Documented by: Famotidine (Pepcid) 20 mg PO BID REPLACED BY [facility] Last Admin: 06/03/20 08:04 Dose: 20 mg Documented by: Guaifenesin (Robitussin) 20 ml PO Q4H PRN PRN PRN Reason: COUGH Hydralazine HCl (Apresoline Iv) 10 mg IV Q4H PRN PRN PRN Reason: SBP > 160 Levofloxacin (Levaquin Tablet) 750 mg PO DAILY@0600 REPLACED BY [facility] Stop: 06/07/20 06:01 Last Admin: 06/03/20 05:39 Dose: 750 mg Documented by: Nutritional Formula (Lactose Free) (Ensure Enlive) 120 ml PO 4X/DAY REPLACED BY [facility] Last Admin: 06/03/20 08:06 Dose: 120 ml Documented by: Ondansetron HCl (Zofran) 4 mg IV Q6H PRN PRN PRN Reason: NAUSEA/VOMITING Prochlorperazine Edisylate (Compazine Iv) 5 mg IV Q4H PRN PRN PRN Reason: Breakthrough nausea/vomiting Sodium Chloride () 10 - 40 ml IV UD PRN PRN Reason: SALINE FLUSH Temazepam (Restoril) 15 mg PO QHS PRN PRN PRN Reason: INSOMNIA Throat Lozenges (Cepacol Sore Throat Lozenge) 1 lozenge MUCOUS MEM Q2H PRN PRN PRN Reason: SORE THROAT STROKE Vital Signs/Narrative: Vital Signs Pulse Ox 06/03/20 07:04 94 Medical Necessity - Tobacco Use Smoking Status: Never smoker Tobacco Use: Non-smoker Assessment/Plan All Active Problems PNA (pneumonia) (Acute) Sepsis (Acute) Abnormal LFTs (Acute) Acute Sepsis 2/2 RML PNA -COVID neg x2 -CTA neg for PE but RML infiltrate noted -sputum cx now with only nml resp aishwarya but with GNR on GS and further studies to follow -continue Levaquin PO day 4/ -pt on RA with SpO2 99% Hypovolemic Hyponatremia -resolved ANIL 2/2 dehydration -resolved Liver Cysts -stable on US and CT -f/u as outpt MO -BMI 40.4 -recommend wgt loss -dietitian consulted H/O Colon Polyps with LGIB -hgb stable -monitor -f/u as outpt as directed previously SI -pt was re-evaluated x2 by crisis and was saying concerning things about killing himself and having guns in the house -plan is for acute psych admission once location of admission is able to be finalized -denied by [facility] and floor was called last pm and they were told that there would be a bed at [facility] on Tuesday 06/05 -pink slip was filled out--> will renew in am 06/04 -suicide precautions -sitter DVT Prophylaxis -Lovenox daily Code Status -Full Dispo -d/c to psych once location established -denied by [facility] and floor was called last pm and they were told that there would be a bed at [facility] on Tuesday 06/05 per [facility] Inpatient E&M: 60525 Subs Hosp L2
[2020-06-03 09:00] VITALS: BP 103/65; PULSE 70; RESP 16; TEMP 36.6; O2SAT 95
[2020-06-03 13:32] VITALS: BP 131/80; PULSE 65; RESP 14; TEMP 36.4; O2SAT 98
--- NOTE | 2020-06-03 15:25 | DCINST_ITS ---
- Discharge Diagnoses Current Active Problems: Current Active and Chronic Problems PNA (pneumonia) (Acute) Sepsis (Acute) Abnormal LFTs (Acute) You will use the following diet at home:: No restrictions, Regular Your food should be the consistency of: Regular Your liquids should be the consistency of: Regular/Thin Discharge Activity: Return to Normal Activity, No Restrictions Call your doctor if you observe: Fever of 101 or Higher, Shortness of breath Allergies/Adverse Reactions: Allergies No Known Allergies Allergy (Verified 05/30/20 13:08) Medications to take at Discharge levoFLOXacin tablet [Levaquin tablet] 750 mg PO DAILY@0600 tab 06/03/20 Primary Care Physician: NOT,DEFINED [NON-STAFF] - Please follow up with your Primary Care Physician in: 1-2 weeks Test Results: Test results from this visit will be discussed in further detail at your follow- up appointment, if applicable.
--- NOTE | 2020-06-03 15:27 | DS.PCM_ITS ---
Discharge Date and Diagnosis - Problem List Patient Problems: Active and Suspected Problems PNA (pneumonia) (Acute) Sepsis (Acute) Abnormal LFTs (Acute) Date of Admission: 05/30/20 Date of Discharge: 06/03/20 - Primary Discharge Diagnosis Acute Problems: Active Problems PNA (pneumonia) (Acute) Sepsis (Acute) Abnormal LFTs (Acute) Hospital Course and Treatment Imaging Results: STUDY: X-RAY CHEST REASON FOR EXAM: Male, 60 years old. Sob, loose stool, recent covid test but doesn''t have results back yet, weak, unable to keep food down TECHNIQUE: Single AP portable view of the chest. COMPARISON: None. FINDINGS: EKG electrodes are seen. Infiltration in the right middle lobe. There is no demonstrated pleural abnormality. There is borderline cardiomegaly. Normal mediastinum and farrah. Normal visualized pulmonary arteries. Normal visualized aortic arch and descending thoracic aorta. There are mild degenerative changes of the visualized thoracic spine. Normal visualized ribs, clavicles, and shoulders. There is no demonstrated abnormality of the visualized soft tissue structures of the upper abdomen. RAD/Chest 1 View (Portable) IMPRESSION: Right middle lobe infiltrate. ISTORY: DYSPNEA/COUGH,FATIGUE,HEADACHE,MUSCLE AND JOINT ACHES,NAUSEA,VOMITING AND DIARRHEA,PT'S COVID TEST WAS NEGATIVE TECHNIQUE: Helically acquired images were obtained of the chest following the intravenous administration of 100 ML of Isovue-370 Iodinated contrast. as per pulmonary angiogram protocol with 2D , but without 3-D MIP reconstructions. A radiation dose optimization technique was used for this scan. COMPARISON: Chest x-ray from May 30, 2020 FINDINGS: # of images incl. paperwork: 1311 Airspace disease is present throughout the right lower lobe with decreased volume. The consolidation is confluent with the right hilum. No effusions. Within the thoracic spinethere is a minimal kyphosis with some degenerative disc disease. A few small node invaginations are present. No lytic or blastic metastasis are perceived Vertebral body height fairly well preserved Facets are well aligned. No rib lesions are perceived. Heart is not enlarged. Thoracic aorta diseased with atherosclerotic calcific plaque. No aneurysms, stenoses, dissections, nor occlusions. Right hilar lymphoid tissue is prominent. There is likely some subcarinal lymphadenopathy. No axillary adenopathy is perceived No pulmonary emboli are perceived, however, the timing of the contrast bolus demonstrates improved opacification of the pulmonary veins in the thoracic aorta than it does the pulmonary arteries, therefore, decreasing the negative predictive value of this study Many hypodense lesions are present within the liver. The largest of these, within the dome of the liver has fairly well-defined margins, measures 4.5 cm in long axis dimensions, and has a central density of -5 Hounsfield units. All of these lesions are suggestive of cysts. A comparison liver ultrasound is available from one hour earlier. Several benign liver cysts were demonstrated on the ultrasound. The adrenal glands are incompletely imaged but normal. The gallbladder is contracted CT/CTA Chest W/WO Contrast IMPRESSION: No pulmonary embolism, aortic aneurysm, or aortic dissection. Timing of the contrast bolus is more optimized for the pulmonary veins in the thoracic aorta than it is the pulmonary arteries. This decreases the negative predictive value of the study, however, I believe the study is still diagnostic to exclude pulmonary embolism. Right lower lobe airspace disease continuous with the right hilum with right hilar and some mediastinal adenopathy. This could be infection, however, this could also be malignancy. Several hypodense lesions within the liver confirmed to be cysts on the ultrasound performed earlier today. Individualized dose optimization techniques were used for this CT. at 2121 Reported and signed by: Rich Ravi MD HISTORY: ABN LFTS TECHNIQUE: Anaya scale and color doppler imaging was performed of the pancreas, liver, and gallbladder. COMPARISON: None FINDINGS: # of images incl. paperwork: 124 The liver is enlarged at 18.4 cm. Within the liver there are several lesions. These are hypoechoic with well-defined margins and increased through transmission consistent with benign cysts. One of these measures 3.2 x 2.4 x 3 cm. Another measures 3.6 x 4.8 x 3.8 cm. A third measures 0.9 x 0.8 x 0.8 cm. No gallstones, gallbladder wall thickening or biliary dilatation. Gallbladder wall measures 2 mm. Common bile duct measures 5 mm. No tenderness upon insonation the gallbladder. Visualized pancreas is normal in appearance. Right kidney is normal in size and appearance. Visualized abdominal aorta has normal caliber. IVC is patent. Hepatopedal flow is present within the central portal vein. US/Liver IMPRESSION: Hepatomegaly and hepatic steatosis. 3 benign hepatic cysts.. at 2057 Reported and signed by: Rich Ravi MD Crisis Operations: None Procedures: None Summary of Care Provided: Mr. Davalos is a 60 year old M with PMH of GI bleed 2/2 colonic polyps; who is not on any home meds, presented to the ED on 05/30/2020 with c/o SOB and stating he thinks he has COVID-19. He went to a bar with a friend from [place] about 10 days ago. The following Friday he states that he started feeling ill. He started with a cough with occasional sputum production. He then started having severe fatigue, muscle and joint aches, and headaches. He developed nausea and vomiting and severe diarrhea. He had fevers and chills start yesterday. He also reported a change in his taste and smell starting the Friday afternoon prior to admission. CXR showed a RLL infiltrate. COVID-19 x 2 was neg. CTA was done 2/2 SOB and elevation of his d-dimer. This was neg for acute PE but it too showed a RLL infiltrate. He was maintained on ABX and converted to oral Levaquin and has completed 4 days of a 7 day course. He is to continue this for another 3 days after d/c. There was some concern by SW in the ED with comments the pt made about SI. He was seen by Crisis and initially cleared for d/c home but he persisted with make strange comments in conversation about SI and guns and knowing how to do it right and not be found therefore crisis was asked to re- evaluate him. They too were concerned about his safety at home and recommended d/c to an acute psychiatric facility. We were originally told that there would likely not be a bed available until Friday, but one became open today and he has been accepted for admission there today. He was discharged in stable condition. Patient Problems: Active and Suspected Problems PNA (pneumonia) (Acute) Sepsis (Acute) Abnormal LFTs (Acute) - Physical Exam Vitals/I&O's: Vital Signs Temp Pulse Resp BP Pulse Ox 97.5 F L 65 14 131/80 H 98 06/03/20 13:32 06/03/20 13:32 06/03/20 13:32 06/03/20 13:32 06/03/20 13:32 Oxygen Flow Rate (L/min) 2 Oxygen Delivery Method Room Air Weight: 127.868 kg Body Mass Index (BMI) 40.4 Intake and Output for Last 24 Hours 06/01/20 06/02/20 06/03/20 23:59 23:59 23:59 Intake Total 3286.25 / 3286.25 1220 / 1220 2600 / 2600 Balance 3286.25 / 3286.25 1220 / 1220 2600 / 2600 Microbiology Past 72 Hours 05/30/20 17:54 Blood Culture (Wb) - Left Hand Blood Culture - Preliminary No growth in 48 hours. 05/30/20 17:40 Blood Culture (Wb) - Right Hand Blood Culture - Preliminary No growth in 48 hours. 05/31/20 00:40 Sputum, Expectorated/Coughed Gram Stain - Final 05/31/20 00:40 Sputum, Expectorated/Coughed Respiratory Culture - Final Mixed normal respiratory aishwarya. No Streptococcus pneumoniae, beta-hemolytic Streptococcus or Staphylococcus aureus isolated. Current Medications Acetaminophen (Tylenol) 650 mg PO Q6H PRN PRN PRN Reason: Pain Score 1-10/Temp > 100.7 F Al Hydroxide/Mg Hydroxide (Mylanta Ii) 30 ml PO Q6H PRN PRN PRN Reason: Gastric Burning Albuterol Sulfate (Ventolin Aerosols) 2.5 mg INHALATION Q2H PRN PRN PRN Reason: Dyspnea, wheezing Enoxaparin Sodium (Lovenox) 40 mg SC DAILY [facility] Last Admin: 06/03/20 08:05 Dose: Not Given Documented by: Famotidine (Pepcid) 20 mg PO BID [facility] Last Admin: 06/03/20 08:04 Dose: 20 mg Documented by: Guaifenesin (Robitussin) 20 ml PO Q4H PRN PRN PRN Reason: COUGH Hydralazine HCl (Apresoline Iv) 10 mg IV Q4H PRN PRN PRN Reason: SBP > 160 Levofloxacin (Levaquin Tablet) 750 mg PO DAILY@0600 [facility] Stop: 06/07/20 06:01 Last Admin: 06/03/20 05:39 Dose: 750 mg Documented by: Nutritional Formula (Lactose Free) (Ensure Enlive) 120 ml PO 4X/DAY [facility] Last Admin: 06/03/20 13:31 Dose: 120 ml Documented by: Ondansetron HCl (Zofran) 4 mg IV Q6H PRN PRN PRN Reason: NAUSEA/VOMITING Prochlorperazine Edisylate (Compazine Iv) 5 mg IV Q4H PRN PRN PRN Reason: Breakthrough nausea/vomiting Sodium Chloride () 10 - 40 ml IV UD PRN PRN Reason: SALINE FLUSH Temazepam (Restoril) 15 mg PO QHS PRN PRN PRN Reason: INSOMNIA Throat Lozenges (Cepacol Sore Throat Lozenge) 1 lozenge MUCOUS MEM Q2H PRN PRN PRN Reason: SORE THROAT Discharge Activity: Return to Normal Activity, No Restrictions Call your doctor if you observe: Fever of 101 or Higher, Shortness of breath Home Medications: Medications to take at Discharge levoFLOXacin tablet [Levaquin tablet] 750 mg PO DAILY@0600 tab 06/03/20 Primary Care Physician: NOT,DEFINED [NON-STAFF] - Please follow up with your Primary Care Physician in: 1-2 weeks Medical Necessity - Tobacco Use Smoking Status: Never smoker Tobacco Use: Non-smoker Meaningful Use Info Meaningful Use Diagnoses (Choose all that apply): None applicable Inpatient E&M: 80068 Disch Hosp
--- NOTE | 2020-06-03 15:28 | NURSING ---
[facility] accepting physician: Dr. Banks , room C1, RN-RN report: [phone] ext [phone], [facility]
== END 2020-06-03 16:00 | DRG 871 ==
LOC: ED 16:49 → ICU 05-31 06:56 → MS2 06-01 07:28 → MS3 06-01 13:24
PROVIDERS: Admitting Provider Family Medicine; Emergency Provider Emergency Medicine; Visit Provider Internal Medicine
DX: A41.9 Sepsis, unspecified organism (principal); J18.9 Pneumonia, unspecified organism; R45.851 Suicidal ideations; E87.1 Hypo-osmolality and hyponatremia; Z68.41 Body mass index [BMI] 40.0-44.9, adult; N17.9 Acute kidney failure, unspecified; E87.6 Hypokalemia; R94.5 Abnormal results of liver function studies; E66.01 Morbid (severe) obesity due to excess calories; K76.89 Other specified diseases of liver; E86.1 Hypovolemia; E86.0 Dehydration; Z87.19 Personal history of other diseases of the digestive system
CPT/HCPCS: 36415; 71045; 71275; 76705; 80048; 80053; 80076; 80307; 80320; 82728; 83605; 83615; 83735; 84100; 84145; 84484; 85014; 85018; 85025; 85379; 85610; 85730; 86140; 87040; 87070; 87205; 87449; 87635; 93005; 93970; 94799; 97802; 99251; 99285; J7030; J7050; Q9967; A4216; G0463; G0480; J2405; U0003